=== PATIENT | male | born 1995 | race Two or more races ===

== ENCOUNTER 2016-12-18 16:30 | Emergency (ER) | payer SELFPAY ==
[~2016-12-18] VITALS: Ht 185.4 cm; Wt 118.4 kg
[2016-12-18 16:54] VITALS: BP 133/79
[2016-12-18 17:51] VITALS: BP 133/79
[2016-12-18] MEDS ORDERED: IBUPROFEN600 MG ORAL (17:55)
--- NOTE | 2016-12-18 21:15 | Emergency Room Report ---
History of Present Illness General Chief Complaint: Upper Extremity Injury Source: Patient Present Illness HPI the patient is a 21-year-old male presenting with right shoulder pain. The patient states that for months prior he fell onto the shoulder while walking and has had periodic pain ever since. Patient is unsure of any provoking factors. The patient has not been seen for this. Pain is described as an 8/10 dull ache and is worse with shoulder movement. The patient denies any radiating pain. Patients any numbness or tingling. Patient denies any other symptoms Allergies: Coded Allergies: EGG DERIVED (Verified Allergy, Unknown, 12/18/16) Patient History Past Medical History: see triage record Pertinent Family History: none Reviewed Nursing Documentation: PMH: Agreed, PSxH: Agreed Nursing Documentation-PMH Past Medical History: No Stated History Review of Systems All Other Systems: negative except mentioned in HPI Physical Exam Vital Signs Date Time Temp Pulse Resp B/P Pulse Ox O2 Delivery O2 Flow Rate FiO2 12/18/16 16:42 97.5 94 16 133/79 100 Room Air Sp02 EP Interpretation: reviewed, normal General Appearance: no apparent distress, alert, GCS 15, non-toxic Head: normocephalic, atraumatic Eyes: bilateral eye PERRL, bilateral eye normal inspection ENT: hearing grossly normal, normal pharynx, no angioedema, normal voice Musculoskeletal: back normal, gait/station normal, normal range of motion, non- tender Neurologic: alert, oriented x3, responsive, motor strength/tone normal, sensory intact, normal gait, speech normal Psychiatric: judgement/insight normal, memory normal, mood/affect normal, no suicidal/homicidal ideation Skin: normal color, no rash, warm/dry, well hydrated Lymphatic: no adenopathy Procedures Splinting Splinting : Consent: Verbal Location: R shoulder Splint: sling Pre-Proc Neuro Vasc Exam: normal Post-Proc Neuro Vasc Exam: normal Patient Tolerated: Well Complications: None Medical Decision Making PA Attestation Dr. Thomas is my supervising physician. Patient management was discussed with my supervising physician Diagnostic Impression: Primary Impression: Right shoulder strain ER Course the patient is a 21-year-old male presenting with right shoulder pain Ddx considered include but not limited to sprain/strain, fracture, contusion, RTC injury Physical exam: Vitals within normal limits. No apparent distress Right shoulder: No obvious deformity. Clavicle is nontender. No tenderness to palpation over shoulder. Full active range of motion. 5/5 strength. Sensation intact to light touch. No erythema. No ecchymosis X-ray of the shoulder is unremarkable The patient is given Motrin for pain and right arm is placed in a sling The patient is discharged home and will followup with PMD. Patient advised that he may need MRI in the future if pain persists. The patient is given a prescription for Motrin. ER precautions given Other X-Ray Diagnostic Results Other X-Ray Diagnostic Results : X-Ray Ordered: R shoulder Date: Dec 18, 2016 EP Interpretation: Yes Findings: no fractures, no dislocation, no soft tissue swelling Number of Views: 3 PA Scribe Text I am acting as scribe for my supervising physician. My supervising physician's interpretation of the R shoulder xrays are there are no fractures, dislocations or soft tissue swelling. Last Vital Signs Date Time Temp Pulse Resp B/P Pulse Ox O2 Delivery O2 Flow Rate FiO2 12/18/16 17:51 97.5 79 16 133/79 100 Room Air Status: improved Disposition: HOME, SELF-CARE Condition: Improved Scripts Ibuprofen* (MOTRIN*) 600 Mg Tablet 600 MG ORAL Q8H Y for For Pain, #30 TAB 0 Refills Prov: DIGNA CORONA 12/18/16 Referrals: NOT CHOSEN [facility]/MD,REFERRING (PCP) Patient Instructions: Shoulder Pain Additional Instructions: I discussed my findings with the patient. All questions and concerns have been answered. Treatment and medication compliance have been addressed. I advised the patient that they need to follow up with PMD in 3-5 days. Return to ED if pain remains or worsens, numbness or tingling occurs, new rash is noticed, fever is noticed, or if needed for any reason. Patient verbalized understanding of discharge instructions. The patient is advised he may need MRI if pain continues DIGNA CORONA Dec 18, 2016 21:15
--- NOTE | 2016-12-19 13:17 | Diagnostic Imaging Report ---
Indication: Pain Findings: 3 views of the right shoulder were obtained. No acute fractures, malalignment, erosions or periostitis are identified. Bone mineralization is within normal limits. Soft tissues are unremarkable. Impression: Negative examination of the shoulder.
== END 2016-12-18 18:00 | disposition home or self-care (01) ==
LOC: EMR 17:55
DX: T14.8 Other injury of unspecified body region (principal); W19.XXXA Unspecified fall, initial encounter; Y93.01 Activity, walking, marching and hiking; Y92.89 Other specified places as the place of occurrence of the external cause
CPT/HCPCS: 99283